=== PATIENT | female | born 1940 | race Caucasian/White ===

== ENCOUNTER 2018-11-27 15:24 | Observation (INO) | payer OTHER, BC ==
[2018-11-27 17:06] LABS: Absolute Lymphocytes (CBC) 1.7 K/uL (0.7-4.9); Absolute Monocytes 0.6 K/uL (0.1-1.3); Absolute Neutrophil 2.7 K/uL (1.8-8.0); Basophils % 1.1 % (0-1.3); Eosinophils % 3.1 % (0-4.4); Hematocrit 35.5 % (36.0-45.0); Lymphocytes % 32.2 % (15.3-44.8); MPV 7.5 fL (7.6-11.3); Monocytes % 11.5 % (3.3-12.3); RBC Red Blood Cell Count 3.93 M/uL (3.86-4.86)
[2018-11-27 17:30] VITALS: BMI 18.1
[2018-11-27 17:34] LABS: ALT/SGPT 20 U/L (12-78); AST/SGOT 22 U/L (15-37); Albumin 4.4 g/dL (3.4-5.0); Alkaline Phosphatase 77 U/L (45-117); BUN Blood Urea Nitrogen 15 mg/dL (7-18); Bicarbonate 27 mmol/L (21-32); Bilirubin Total 0.4 mg/dL (0.2-1.0); CKMB Creatine Kinase MB < 1.0 ng/mL (0.3-3.6); Creatine Phosphokinase 91 U/L (26-192); Glucose Level 90 mg/dL (74-106); Magnesium 2.4 mg/dL (1.8-2.4); Potassium 4.4 mmol/L (3.5-5.1); Protein, Total 8.2 g/dL (6.4-8.2); Sodium Level 140 mmol/L (136-145); Troponin I 0.02 ng/mL (0.0-0.045)
[2018-11-27 18:09] VITALS: BP 185/79; TEMP 98.4
[2018-11-27 18:59] LABS: Urine Appearance CLEAR; Urine Bilirubin NEGATIVE (NEG); Urine Blood NEGATIVE (NEG); Urine Color YELLOW; Urine Glucose NEGATIVE (NEG); Urine Protein NEGATIVE (NEG); Urine Urobilinogen 0.2 mg/dL (0.2-1.0); Urine pH 5.5 (5.0-7.0)
[2018-11-27 19:08] LABS: Urine Microscopic Reflex ORDER UMIC
[2018-11-27 19:17] LABS: Urine RBC NONE SEEN /HPF (NONE SEEN)
[2018-11-27 19:18] LABS: Urine Bacteria <20 /HPF (<20); Urine Culture Reflex Order NOT NEEDED
--- NOTE | 2018-11-28 06:23 | SS ---
Date of Discharge: 11/27/2018 Chief Complaint: Chest pain. History Of Present Illness: This is an 78-year-old female patient who came in with her today with complaints of right anterior knee pain and tenderness ever since she bumped her right knee a mo nth ago. For last 6 weeks, she has been having chest pain on the left side of the chest, describing this feeling as achy type of feeling in the left side of the chest and sometimes associated with left arm pain. Pain in the chest last for few minutes. She notices this pain while she does her normal housework, and sometimes she has to stop doing this work, has to sit down, and then after sitting val n for a while the pain goes away. Pain happens on a daily basis. She is also having some sinus sebastián estion and drainage. No fever. No chills. After she was evaluated at the office, I was concerned a bout this chest pain problem and discussed with her and her and recommended for her to be adm itted to the hospital for further evaluation and management of this chest pain problem, and the patie nt was agreeable to do so. 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 Medications: List reviewed. Review of Systems: Cardiovascular: As mentioned above. Musculoskeletal: As mentioned above. ENT: As mentioned above. All other systems reviewed and negative. Past Medical History: Significant for: 1.Hypertension. 2.Chronic kidney disease stage 3. 3.Osteoarthritis at multiple sites. 4.Hyperlipidemia. 5.Leukocytopenia. Past Surgical History: In 2005, she had carotid artery angioplasty and stent placement in the left c arotid artery, and in the past, she had hysterectomy and right knee surgery. Allergies: ALLERGY TO SULFA. Family History: Significant for coronary artery disease, lung cancer, osteoarthritis. Social History: Negative for smoking and alcohol use. Physical Examination: Vital Signs: When she came into office today, height was 5 feet 4 inches, weight 110 pounds, blood p ressure 187/77, pulse 56, respiratory rate 15, temperature 98.4. General: Awake, alert, oriented, not in distress. HEENT: Head atraumatic, normocephalic. Conjunctivae nonerythematous. Sclerae white. Mouth, no thr ush or edema noted. Ears/Nose, no mass, lesion, discharge noted. Neck: Supple. No JVD, lymph nodes, bruit, thyromegaly noted. Lungs: Bilateral good equal air entry. Clear to auscultation. No rhonchi. No rales. Heart: Normal heart sounds, no murmur or gallop. Abdomen: Soft, bowel sounds normal. No guarding, rigidity, tenderness, mass, hepatosplenomegaly, dis tention, or bruit noted. Extremities: No leg edema. No calf tenderness. Skin: No rash, ulcer, cellulitis. Lymphatics: No lymph node enlargement in neck, supraclavicular, infraclavicular region. Neuro: No focal neurological deficit. Chest: Unremarkable. External Genitalia: Deferred. Rectal: Deferred. Laboratory Data: White count 5.2, hemoglobin 11.7, platelets 290. Sodium 140, potassium 4.4, chlori de 108, bicarb 27, BUN 15, creatinine 1.26, glucose 90. Liver function tests unremarkable. TSH 2.19 . Urinalysis: Trace esterase, otherwise negative. Chest x-ray: EKG and echocardiogram were ordere d to be done today, result not available. Hospital Course: After I saw the patient, it was recommended for her to be admitted to the hospital for further cardiac workup, and our plan was to get EKG, echos, chest x-ray today, and stress test to patricia after getting serial cardiac enzymes. The patient's first troponin is 0.02, and her blood wor k was done just before 5 p.m., and around 7 p.m., nurse contacted and informed me that the patient jeong s decided to leave hospital against medical advice, as all of a sudden she informed nurse that she ne eds to go home to take care of her cat, and she is not going to stay in the hospital, so she signed p apers of against medical advice, and she will be leaving to home this evening. Final Diagnoses: 1.Chest pain. 2.Hypertension. 3.Mixed hyperlipidemia. 4.Osteoarthritis, multiple sites. 5.Chronic kidney disease stage 3. FRANCINE/MODL Voice ID: [id number] Report ID: [id number]
--- NOTE | 2018-11-28 12:27 | EKG ---
Test Date: 2018-11-27 Test Time: 16:56:45 Hospital Corpsman: FATMATA MEASUREMENT RESULTS: Intervals: Rate: 56 MS: 152 QRSD: 66 QT: 424 QTc: 409 [place]: P: 77 MS: 152 QRS: 81 T: 80 INTERPRETIVE STATEMENTS: Sinus bradycardia Right atrial enlargement Borderline ECG Compared to ECG 02/04/2017 05:33:51 Atrial abnormality now present Electronically Signed On 11-28-18 12:25:44 MANUFACTURING EXECUTIVE by Simone Martines
== END 2018-11-27 19:34 | disposition left against medical advice (07) ==
LOC: 2ND 15:54
PROVIDERS: ADMIT Internal Medicine; ATTEND Internal Medicine
DX: R07.9 Chest pain, unspecified (principal); I12.9 Hypertensive chronic kidney disease with stage 1 through stage 4 chronic kidney disease, or unspecified chronic kidney disease; N18.3 Chronic kidney disease, stage 3 (moderate); E78.2 Mixed hyperlipidemia; M19.90 Unspecified osteoarthritis, unspecified site
CPT/HCPCS: 36415; 80053; 82550; 82553; 83735; 84443; 84484; 85025; 93005; G0378; G0379; 81003; 81015

== ENCOUNTER 2019-12-15 09:43 | Emergency (ER) | payer OTHER, BC ==
[2019-12-15] MEDS ORDERED: TETANUS & DIPHTHERIA TOX,ADULT 0.5 ML VIAL ONE (10:36)
[2019-12-15] MEDS ORDERED: LIDOCAINE 1% MPF 30 ML VIAL ONE (10:36)
--- NOTE | 2019-12-15 11:29 | RAD REPORT ---
EXAM DESCRIPTION: RAD - Hand Right 3 View - 12/15/2019 10:47 am CLINICAL HISTORY: fall Fall, hand pain COMPARISON: No comparisons FINDINGS: Prominent osteoarthritic changes are present involving the DIP joint of the second finger. Subtle lucency is seen along the base of the fifth metacarpal in a transverse fashion. This may repr esent a fracture if the patient is tender in this region.
--- NOTE | 2019-12-15 12:07 | RAD REPORT ---
EXAM DESCRIPTION: RAD - Knee Right 3 View - 12/15/2019 10:48 am CLINICAL HISTORY: fall Trauma, fall COMPARISON: No comparisons FINDINGS: The inferior pole of the patella appears to have been previously resected. Moderate soft t issue swelling is seen along the inferior aspect of the remaining patella fragment. No acute fracture or joint effusion.
--- NOTE | 2019-12-15 12:39 | ER ---
Nurse's Notes [facility] Name: Sofia Mendieta Age: 79 yrs Sex: Female : 1940 Arrival Date: 12/15/2019 Time: 09:46 Bed 14 [facility] MD: Aryan Pablo Diagnosis: Finger Laceration;Internal Derangement of Knee Presentation: 12/15 10:06 Presenting complaint: Patient states: She stumbled and fell while going to the bathroom aj1 and cut her hand on the door frame. Denies LOC. Laceration noted to left hand, not currently bleeding. Transition of care: patient was not received from another setting of care. Onset of symptoms was December 15, 2019. Risk Assessment: Do you want to hurt yourself or someone else? Patient reports no desire to harm self or others. Initial Sepsis Screen: Does the patient meet any 2 criteria? HR > 90 bpm. No. Patient's initial sepsis screen is negative. Does the patient have a suspected source of infection? No. Patient's initial sepsis screen is negative. Care prior to arrival: None. 10:06 Method Of Arrival: Ambulatory aj1 10:06 Acuity: RODGER 4 aj1 Triage Assessment: 10:11 General: Appears in no apparent distress. comfortable, Behavior is calm, cooperative, aj1 appropriate for age. Pain: Complains of pain in left hand. Historical: - Allergies: 10:11 Sulfa (Sulfonamide Antibiotics); aj1 - Home Meds: 10:11 [place] 7.5-325 mg oral tab 1 tab three times daily [Active]; amlodipine 5 mg oral tab 1 aj1 tab once daily [Active]; Diazepam 0.5 mg Oral at bedtime [Active]; melatonin 10 mg Oral cap nightly [Active]; memantine 5 mg oral tab 2 times per day [Active]; donepezil 10 mg Oral tab 1 tab at bedtime [Active]; - PMHx: 10:11 Hypertension; kidney disease; Arthritis; aj1 - Immunization history:: Flu vaccine is not up to date. - Coronavirus screen:: The patient has NOT traveled to [place], [place], or [place] in the past 14 days. - Social history:: Smoking status: Patient/guardian denies using tobacco. - Ebola Screening: : Patient denies travel to an Ebola-affected area in the 21 days before illness onset. Screenin:12 Abuse screen: Denies threats or abuse. Denies injuries from another. Nutritional aj1 screening: No deficits noted. Tuberculosis screening: No symptoms or risk factors identified. 12:58 Fall Risk None identified. aj1 Assessment: 10:12 General: Appears in no apparent distress. comfortable, Behavior is calm, cooperative, aj1 appropriate for age. Pain: Complains of pain in left hand. Neuro: Level of Consciousness is awake, alert, obeys commands, Oriented to person, place, time, situation. Cardiovascular: Patient's skin is warm and dry. Respiratory: Airway is patent Respiratory effort is even, unlabored, Respiratory pattern is regular, symmetrical. GI: No signs and/or symptoms were reported involving the gastrointestinal system. : No signs and/or symptoms were reported regarding the genitourinary system. EENT: No signs and/or symptoms were reported regarding the EENT system. Derm: Skin is pink, warm \T\ dry. normal. Musculoskeletal: No signs and/or symptoms reported regarding the musculoskeletal system. Circulation, motion, and sensation intact. Injury Description: Laceration sustained to inner aspect of left palm is 0.5 to 2.5 cm long, no active bleeding noted at this time. 11:17 Reassessment: Patient appears in no apparent distress at this time. No changes from aj1 previously documented assessment. Patient and/or family updated on plan of care and expected duration. Pain level reassessed. Patient is alert, oriented x 3, equal unlabored respirations, skin warm/dry/pink. 12:33 Reassessment: HERI White at bedside to update patient. aj1 Vital Signs: 10:11 BP 138 / 59; Pulse 95; Resp 18; Temp 97.8; Pulse Ox 100% on R/A; Weight 59.87 kg (R); aj1 Height 5 ft. 5 in. (165.10 cm); 11:29 BP 135 / 66; Pulse 88; Resp 18; Pulse Ox 97% on R/A; aj1 12:35 BP 134 / 65; Pulse 89; Resp 18; Pulse Ox 97% on R/A; aj1 10:11 Body Mass Index 21.97 (59.87 kg, 165.10 cm) aj1 ED Course: 09:46 Patient arrived in ED. mr 09:46 Aryan Pablo MD is Private Physician. mr 10:05 Yeimy Russell, BUZZ is Primary Nurse. aj1 10:06 Carlton Loredo PA is PHCP. jm 10:06 Chapito Al MD is Attending Physician. jm 10:07 Triage completed. aj1 10:11 Arm band placed on Patient placed in an exam room. aj1 10:12 Patient has correct armband on for positive identification. Bed in low position. Call aj1 light in reach. Side rails up X 1. 10:12 No provider procedures requiring assistance completed. aj1 10:48 Hand Right 3 View XRAY In Process Unspecified. EDMS 10:48 Knee Right 3 View XRAY In Process Unspecified. EDMS 12:37 Aryan Pablo MD is Referral Physician. [facility] 12:57 Patient did not have IV access during this emergency room visit. aj1 Administered Medications: 10:38 Drug: Tetanus-Diphtheria Toxoid Adult 0.5 ml {Escalator Service Mechanic: [employer]. Exp: aj1 11/29/2021. Lot #: [id number]. } Route: IM; Site: right deltoid; 12:56 Follow up: Response: No adverse reaction aj1 11:05 Drug: Lidocaine (1 %) 20 ml {Note: Administered by HERI White.} Volume: 20 ml; aj1 Route: Infiltration; 12:56 Follow up: Response: No adverse reaction aj1 Outcome: 12:38 Discharge ordered by MD. [facility] 12:58 Discharged to home ambulatory. aj1 12:58 Condition: good 12:58 Discharge instructions given to patient, family, Instructed on discharge instructions, follow up and referral plans. medication usage, wound care, Demonstrated understanding of instructions, follow-up care, medications, wound care, Prescriptions given X 1. 13:02 Patient left the ED. aj1 Signatures: Dispatcher [employer] EDMS Yeimy Russell RN RN Carlton Mosqueda PA PA jmm HowardAyla mr Corrections: (The following items were deleted from the chart) 11:48 11:17 Reassessment: Patient appears in no apparent distress at this time. No changes aj1 from previously documented assessment. Patient and/or family updated on plan of care and expected duration. Pain level reassessed. Patient is alert/active/playful, equal unlabored respirations, skin warm/dry/pink. aj1
--- NOTE | 2019-12-15 12:40 | EDPHYS ---
Physician Documentation [facility] Name: Sofia Mendieta Age: 79 yrs Sex: Female : 1940 Arrival Date: 12/15/2019 Time: 09:46 Bed 14 Private MD: Aryan Pablo ED Physician Chapito Al HPI: 12/15 10:19 This 79 yrs old Female presents to ER via Ambulatory with complaints of Fall jmm Injury, Laceration To Hand. 10:19 Details of fall: The patient fell from an upright position, while walking. Onset: The jmm symptoms/episode began/occurred acutely, 7 hour(s) ago. Associated injuries: The patient sustained right hand, right knee. This is an 79 year old female with a history of htn, that presents to the ED with complaints of right knee pain and right hand pain after tripping at 0300 today. Denies head injury. . Historical: - Allergies: 10:11 Sulfa (Sulfonamide Antibiotics); aj1 - Home Meds: 10:11 [place] 7.5-325 mg oral tab 1 tab three times daily [Active]; amlodipine 5 mg oral tab 1 aj1 tab once daily [Active]; Diazepam 0.5 mg Oral at bedtime [Active]; melatonin 10 mg Oral cap nightly [Active]; memantine 5 mg oral tab 2 times per day [Active]; donepezil 10 mg Oral tab 1 tab at bedtime [Active]; - PMHx: 10:11 Hypertension; kidney disease; Arthritis; aj1 - Immunization history:: Flu vaccine is not up to date. - Coronavirus screen:: The patient has NOT traveled to [place], [place], or [place] in the past 14 days. - Social history:: Smoking status: Patient/guardian denies using tobacco. - Ebola Screening: : Patient denies travel to an Ebola-affected area in the 21 days before illness onset. ROS: 10:19 Constitutional: Negative for fever, chills, and weight loss, Cardiovascular: Negative jmm for chest pain, palpitations, and edema, Respiratory: Negative for shortness of breath, cough, wheezing, and pleuritic chest pain. 10:19 MS/extremity: Positive for injury or acute deformity, laceration, pain. 10:19 Skin: Positive for laceration(s). 10:19 All other systems are negative. Exam: 10:19 Constitutional: This is a well developed, well nourished patient who is awake, alert, jmm and in no acute distress. Head/Face: atraumatic. Eyes: EOMI, no conjunctival erythema appreciated ENT: Moist Mucus Membranes Neck: Trachea midline, Supple Chest/axilla: Normal chest wall appearance and motion. Cardiovascular: Regular rate and rhythm. No edema appreciated Respiratory: Normal respirations, no respiratory distress appreciated Abdomen/GI: Non distended, soft Back: Normal ROM 10:19 Musculoskeletal/extremity: right anterior knee pain on palpation, right medial knee pain on palpation, compartments are soft, full dorsalis pulse, NVI. 10:19 Skin: 3 cm laceration noted to the base of the right 5th phalanx, no active bleeding. 10:19 Neuro: Orientation: is normal, Mentation: is normal, Memory: is normal. 10:19 Psych: Behavior/mood is pleasant, cooperative. Vital Signs: 10:11 BP 138 / 59; Pulse 95; Resp 18; Temp 97.8; Pulse Ox 100% on R/A; Weight 59.87 kg (R); aj1 Height 5 ft. 5 in. (165.10 cm); 11:29 BP 135 / 66; Pulse 88; Resp 18; Pulse Ox 97% on R/A; aj1 12:35 BP 134 / 65; Pulse 89; Resp 18; Pulse Ox 97% on R/A; aj1 10:11 Body Mass Index 21.97 (59.87 kg, 165.10 cm) aj1 Laceration: 11:17 Wound Repair of 3cm ( 1.2in ) subcutaneous laceration to Palmar aspect of proximal jmm phalanx of right little finger. Distal neuro/vascular/tendon intact. Anesthesia: Local anesthetic administered with 3 mls of 1% lidocaine. Wound prep: Simple cleansing with betadine by me. Skin closed with 7 5-0 Prolene using simple sutures and sterile technique. Patient tolerated well. MDM: 10:07 Patient medically screened. m 12:36 Data reviewed: vital signs, nurses notes. Counseling: I had a detailed discussion with casimiro the patient and/or guardian regarding: the historical points, exam findings, and any diagnostic results supporting the discharge/admit diagnosis, lab results, radiology results, the need for outpatient follow up, to return to the emergency department if symptoms worsen or persist or if there are any questions or concerns that arise at home. ED course: Xrays negative. Patient is given wound infection return precautions. patient is otherwise advised to follow up with pcp for reevaluation. Patient/family understood and agrees with the plan of care. . 12/15 10:18 Order name: Hand Right 3 View XRAY; Complete Time: 11:54 jmm 12/15 10:18 Order name: Knee Right 3 View XRAY; Complete Time: 12:18 jmm 12/15 12:18 Order name: Christopher wrap-joint; Complete Time: 12:56 jm Administered Medications: 10:38 Drug: Tetanus-Diphtheria Toxoid Adult 0.5 ml {Accounts Payable Supervisor: [employer]. Exp: aj1 11/29/2021. Lot #: [id number]. } Route: IM; Site: right deltoid; 12:56 Follow up: Response: No adverse reaction aj 11:05 Drug: Lidocaine (1 %) 20 ml {Note: Administered by PA. Christopher} Volume: 20 ml; aj Route: Infiltration; 12:56 Follow up: Response: No adverse reaction aj Disposition: 12/15/19 12:38 Discharged to Home. Impression: Finger Laceration, Internal Derangement of Knee. - Condition is Stable. - Discharge Instructions: Laceration Care, Adult, Knee Pain. - Prescriptions for Cephalexin 500 mg Oral Capsule - take 1 capsule by ORAL route every 6 hours for 10 days; 40 capsule. - Medication Reconciliation Form, Thank You Letter, Antibiotic Education, Prescription Opioid Use form. - Follow up: Aryan Pablo MD; When: 5 - 6 days; Reason: Recheck today's complaints, Continuance of care, Staple/Suture removal, Re-evaluation by your physician. Addendum: 12/17/2019 07:06 Co-signature as Attending Physician, Chapito Al MD I agree with the assessment and c jeong plan of care. Signatures: Dispatcher [employer] EDMS Yeimy Russell, RN RN aj1 Chapito Al MD MD cha Mickail, Joel, PA PA jmm Corrections: (The following items were deleted from the chart) 12/15 11:17 10:19 Skin: 3 cm laceration noted to the base of the right 2nd phalanx, no active [facility] bleeding. casimiro 13:02 12:38 12/15/2019 12:38 Discharged to Home. Impression: Finger Laceration; Internal aj1 Derangement of Knee. Condition is Stable. Forms are Medication Reconciliation Form, Thank You Letter, Antibiotic Education, Prescription Opioid Use. Follow up: Aryan Pablo; When: 5 - 6 days; Reason: Recheck today's complaints, Continuance of care, Staple/Suture removal, Re-evaluation by your physician. casimiro
[2019-12-15 13:17] VITALS: TEMP 97.8
[2019-12-15 13:19] VITALS: O2SAT 97
[2019-12-15 13:21] VITALS: BP 134/65
== END 2019-12-15 13:02 | disposition home or self-care (01) ==
LOC: ER 09:43
PROC: 0JQJ0ZZ Repair Right Hand Subcutaneous Tissue and Fascia, Open Approach (ICD-10-PCS; principal; 2019-12-15)
DX: S61.216A Laceration without foreign body of right little finger without damage to nail, initial encounter (principal); M23.91 Unspecified internal derangement of right knee; I12.9 Hypertensive chronic kidney disease with stage 1 through stage 4 chronic kidney disease, or unspecified chronic kidney disease; N18.9 Chronic kidney disease, unspecified; W01.0XXA Fall on same level from slipping, tripping and stumbling without subsequent striking against object, initial encounter; Y93.9 Activity, unspecified; Y92.9 Unspecified place or not applicable; Z23 Encounter for immunization; Z88.2 Allergy status to sulfonamides
CPT/HCPCS: 90471; 90714; 99283

== ENCOUNTER 2021-03-22 22:54 | Emergency (ER) | payer OTHER, BC ==
--- NOTE | 2021-03-23 02:06 | EDPHYS ---
Physician Documentation [facility] Name: Sofia Mendieta Age: 80 yrs Sex: Female : 1940 Arrival Date: 03/22/2021 Time: 23:08 Bed 8 Private MD: ED Physician oTni Petty HPI: 03/23 01:50 This 80 yrs old Female presents to ER via EMS with unknown complaint. tw4 01:50 Details of fall: The patient fell from an upright position, while standing. Onset: The tw4 symptoms/episode began/occurred today. Associated injuries: The patient sustained injury to the head. The patient has not experienced similar symptoms in the past. Historical: - Allergies: 01:05 Sulfa (Sulfonamide Antibiotics); wh - PMHx: 01:05 Arthritis; Hypertension; kidney disease; wh - Immunization history:: Adult Immunizations unknown. - Social history:: Smoking status: unknown. ROS: 01:50 Constitutional: Negative for fever, chills, and weight loss, Eyes: Negative for injury, tw4 pain, redness, and discharge, Cardiovascular: Negative for chest pain, palpitations, and edema, Respiratory: Negative for shortness of breath, cough, wheezing, and pleuritic chest pain, Abdomen/GI: Negative for abdominal pain, nausea, vomiting, diarrhea, and constipation, Back: Negative for injury and pain, MS/Extremity: Negative for injury and deformity, Skin: Negative for injury, rash, and discoloration, Neuro: Negative for headache, weakness, numbness, tingling, and seizure. Exam: 01:50 Constitutional: This is a well developed, well nourished patient who is awake, alert, tw4 and in no acute distress. Head/Face: Normocephalic, atraumatic. Chest/axilla: Normal chest wall appearance and motion. Nontender with no deformity. No lesions are appreciated. Cardiovascular: Regular rate and rhythm with a normal S1 and S2. No gallops, murmurs, or rubs. Normal PMI, no JVD. No pulse deficits. Respiratory: Lungs have equal breath sounds bilaterally, clear to auscultation and percussion. No rales, rhonchi or wheezes noted. No increased work of breathing, no retractions or nasal flaring. Abdomen/GI: Soft, non-tender, with normal bowel sounds. No distension or tympany. No guarding or rebound. No evidence of tenderness throughout. Back: No spinal tenderness. No costovertebral tenderness. Full range of motion. MS/ Extremity: Pulses equal, no cyanosis. Neurovascular intact. Full, normal range of motion. Neuro: Awake and alert, GCS 15, oriented to person, place, time, and situation. Cranial nerves II-XII grossly intact. Motor strength 5/5 in all extremities. Sensory grossly intact. Cerebellar exam normal. Normal gait. Vital Signs: 03/22 23:10 BP 153 / 64; Pulse 62; Resp 18; Pulse Ox 100% on R/A; 03/23 02:00 BP 148 / 64; Pulse 55; Resp 18; Pulse Ox 99% on R/A; MDM: 03/22 23:20 Patient medically screened. tw4 03/23 01:50 Differential diagnosis: abrasion, closed head injury, contusion. Data reviewed: vital tw4 signs, nurses notes. Data interpreted: Pulse oximetry: Interpretation: normal. Counseling: I had a detailed discussion with the patient and/or guardian regarding: the historical points, exam findings, and any diagnostic results supporting the discharge/admit diagnosis. 03/22 23:33 Order name: Head C Spine Cap Wo Con CT Administered Medications: No medications were administered Disposition: 03/23/21 02:05 Discharged to Home. Impression: Contusion of other part of head. - Condition is Stable. - Discharge Instructions: Contusion, Head Injury, Adult, [id number]. - Medication Reconciliation Form, Thank You Letter, Antibiotic Education, Prescription Opioid Use form. - Follow up: Private Physician; When: Upon discharge from the Emergency Department; Reason: Recheck today's complaints, Continuance of care, Re-evaluation by your physician. - Problem is new. - Symptoms have improved. Signatures: Dispatcher [employer] EDKing Herron RN RN Toni Petty MD MD tw4 Corrections: (The following items were deleted from the chart) 02:23 02:05 03/23/2021 02:05 Discharged to Home. Impression: Contusion of other part of head. Condition is Stable. Forms are Medication Reconciliation Form, Thank You Letter, Antibiotic Education, Prescription Opioid Use. Follow up: Private Physician; When: Upon discharge from the Emergency Department; Reason: Recheck today's complaints, Continuance of care, Re-evaluation by your physician. Problem is new. Symptoms have improved. tw4
--- NOTE | 2021-03-23 02:06 | ER ---
Nurse's Notes [facility] Name: Sofia Mendieta Age: 80 yrs Sex: Female : 1940 Arrival Date: 03/22/2021 Time: 23:08 Bed 8 Private MD: Diagnosis: Contusion of other part of head Presentation: 03/22 23:10 Chief complaint: EMS states: of Pt heard a thud and [facility] staff was wh called, Pt was found sitting on floor. EMS states unwitnessed fall, unknown LOC, but Pt with no complaint of paiin. Coronavirus screen: Client denies travel out of the [place] in the last 14 days. Client indicates they have traveled out of the [place] in the last 14 days. Ebola Screen: Patient negative for fever greater than or equal to 101.5 degrees Fahrenheit, and additional compatible Ebola Virus Disease symptoms Patient denies exposure to infectious person. Initial Sepsis Screen: Does the patient meet any 2 criteria? No. Patient's initial sepsis screen is negative. Does the patient have a suspected source of infection? No. Patient's initial sepsis screen is negative. Risk Assessment: Do you want to hurt yourself or someone else? Patient reports no desire to harm self or others. Onset of symptoms was March 22, 2021. 23:10 Method Of Arrival: EMS: [facility] 23:10 Acuity: RODGER 4 Historical: - Allergies: 03/23 01:05 Sulfa (Sulfonamide Antibiotics); - PMHx: 01:05 Arthritis; Hypertension; kidney disease; - Immunization history:: Adult Immunizations unknown. - Social history:: Smoking status: unknown. Screenin:00 Abuse screen: Denies threats or abuse. Denies injuries from another. Nutritional screening: No deficits noted. Tuberculosis screening: No symptoms or risk factors identified. Fall Risk Fall in past 12 months (25 points). Assessment: 00:00 General: Appears in no apparent distress. Behavior is cooperative. Pain: Denies pain. Neuro: Level of Consciousness is awake, alert, obeys commands, Oriented to person, place, time. Cardiovascular: Capillary refill < 3 seconds. Respiratory: Airway is patent Respiratory effort is even, unlabored, Respiratory pattern is regular, symmetrical. GI: Abdomen is flat, non-distended. : No signs and/or symptoms were reported regarding the genitourinary system. EENT: No signs and/or symptoms were reported regarding the EENT system. Derm: Skin is intact. Musculoskeletal: Circulation, motion, and sensation intact. 01:07 Reassessment: Patient appears in no apparent distress at this time. No changes from previously documented assessment. Patient and/or family updated on plan of care and expected duration. Pain level reassessed. 02:15 Reassessment: Patient appears in no apparent distress at this time. No changes from previously documented assessment. Patient and/or family updated on plan of care and expected duration. Pain level reassessed. Vital Signs: 03/22 23:10 BP 153 / 64; Pulse 62; Resp 18; Pulse Ox 100% on R/A; 03/23 02:00 BP 148 / 64; Pulse 55; Resp 18; Pulse Ox 99% on R/A; ED Course: 03/22 23:08 Patient arrived in ED. mw2 23:09 Toni Petty MD is Attending Physician. tw4 23:32 King Miner, RN is Primary Nurse. 03/23 00:00 Patient has correct armband on for positive identification. Bed in low position. Call light in reach. Side rails up X 1. Pulse ox on. NIBP on. 00:00 Arm band placed on right wrist. 00:50 Head C Spine Cap Wo Con CT In Process Unspecified. EDFL 01:05 Triage completed. 02:22 No provider procedures requiring assistance completed. Patient did not have IV access during this emergency room visit. Administered Medications: No medications were administered Outcome: 02:05 Discharge ordered by . tw4 02:22 Discharged to [facility]. Transfer form completed. Report given to [facility] 02:22 Condition: stable 02:22 Discharge instructions given to patient, Instructed on discharge instructions, follow up and referral plans. POC Demonstrated understanding of instructions, follow-up care, POC 02:23 Patient left the ED. Signatures: Dispatcher [employer] EDMS King Miner, RN RN Toni Petty MD MD 4 Rachael Matias mw2
[2021-03-23 02:31] VITALS: BP 148/64; O2SAT 99
--- NOTE | 2021-03-23 11:22 | RAD REPORT ---
EXAM DESCRIPTION: CT - Head C Spine Cap Wo Con - 03/23/2021 12:50 am CLINICAL HISTORY: The patient is 80 years old and is Female; fall TECHNIQUE: Axial computed tomography images of the head/brain and cervical spine without intravenous contrast. Sagittal and coronal reformatted images were created and reviewed. This CT exam was pe rformed using one or more of the following dose reduction techniques: automated exposure control, a djustment of the mA and/or kV according to patient size, and/or use of iterative reconstruction techn ique. COMPARISON: CT cervical spine 03/03/2015. FINDINGS: Brain: [id number]-[id number] cerebral atrophy. Mild nonspecific white matter changes likely related to chronic microvascular ischemic disea se. No hemorrhage. Ventricles: Unremarkable. No ventriculomegaly. Skull: No acute fracture. Sinuses: Unremarkable as visualized. No acute sinusitis. Mastoid air cells: Unremarkable as visualized. No mastoid effusion. Vertebrae: No acute cervical spine fracture. Minimal anterolisthesis of C3 on C4. 3 mm of anterolisthesis of C4 on C5 which is new compared to the prior exam. Discs/spinal canal/neural foramina: Multilevel disc space narrowing with degenerative endplate c hanges most prominent at C4-C5 and C5-C6. Multilevel facet and uncovertebral joint hypertrophy. Soft tissues: Unremarkable. Vasculature: Stent in the left common carotid artery. Thyroid: 4 mm low-density nodule in the right thyroid. * A single impression for all exams can be found at the end of this report EXAM DESCRIPTION: CT Chest, Abdomen and Pelvis Without Intravenous Contrast CLINICAL HISTORY: The patient is 80 years old and is Female; fall TECHNIQUE: Axial computed tomography images of the chest, abdomen and pelvis without intravenous con trast. Sagittal and coronal reformatted images were created and reviewed. This CT exam was perfor med using one or more of the following dose reduction techniques: automated exposure control, adjus tment of the mA and/or kV according to patient size, and/or use of iterative reconstruction technique . COMPARISON: No relevant prior studies available. FINDINGS: CHEST: Lungs: Unremarkable. No mass. No consolidation. Pleural space: Unremarkable. No significant effusion. No pneumothorax. Heart: Unremarkable. No cardiomegaly. No significant pericardial effusion. ABDOMEN: Liver: 1.3 cm cyst in the left liver. Gallbladder and bile ducts: Unremarkable. No calcified stones. No ductal dilation. Pancreas: Unremarkable. No ductal dilation. Spleen: Unremarkable. No splenomegaly. Adrenals: Unremarkable. No mass. Kidneys and ureters: Unremarkable. No obstructing stones. No hydronephrosis. Stomach and bowel: Scattered colonic diverticula without evidence of diverticulitis. No obstruction. PELVIS: Appendix: No findings to suggest acute appendicitis. Bladder: Unremarkable. No stones. Reproductive: Unremarkable as visualized. CHEST, ABDOMEN and PELVIS: Intraperitoneal space: Unremarkable. No significant fluid collection. No free air. Bones/joints: 9 mm of anterolisthesis of L5 on S1 with bilateral pars defects. Multilevel disc space narrowing with degenerative endplate changes most prominent at L2-3 an d L4-5. No acute fracture. No dislocation. Soft tissues: Unremarkable. Vasculature: Tortuous aorta. Stent in the left common carotid artery. Scattered atherosclerotic vascular calcifications. No aortic aneurysm. Lymph nodes: Unremarkable. No enlarged lymph nodes. * A single impression for all exams can be found at the end of this report IMPRESSION: CT Head and Cervical Spine Without Intravenous Contrast: 1. No acute intracranial abnormality. 2. No acute cervical spine fracture. CT Chest, Abdomen and Pelvis Without Intravenous Contrast: No acute findings in the chest, abdomen or pelvis. Electronically signed by: Mk Marin MD 03/23/2021 1:45 AM CDT Due to temporary technical issues with the PACS/Fluency reporting system, reports are being signed by the in house radiologist without review as a courtesy to ensure prompt reporting. The interpreting r adiologist is fully responsible for the content of the report.
== END 2021-03-23 02:23 | disposition home or self-care (01) ==
LOC: ER 22:54
DX: S00.83XA Contusion of other part of head, initial encounter (principal); W19.XXXA Unspecified fall, initial encounter; Z88.2 Allergy status to sulfonamides
CPT/HCPCS: 70450; 71250; 72125; 99283

== ENCOUNTER 2021-04-16 06:26 | Observation (INO) | payer OTHER, BC ==
--- NOTE | 2021-04-16 07:34 | RAD REPORT ---
EXAM DESCRIPTION: CT - Head C Spine Mpr Wo Con - 04/16/2021 7:16 am CLINICAL HISTORY: Head and neck injury status post fall. Head and neck pain COMPARISON: March 22, 2021 TECHNIQUE: Computed axial tomography of the head and cervical spine was obtained. Sagittal and coronal reconstruction was performed. All CT scans are performed using dose optimization technique as appropriate and may include automated exposure control or mA/KV adjustment according to patient size. FINDINGS: An intracranial bleed is not seen. A prominent cerebral atrophy is unchanged. . An extra-a xial fluid collection is not noted.Fluid within the visualized sinuses and mastoids is not seen A cervical fracture is not visualized. No dislocation is noted. Mild to moderate anterior subluxation C4 on C5 unchanged. Spondylosis involves the cervical spine IMPRESSION: No acute intracranial abnormality is seen. A cervical fracture is not visualized. If the patient continues to have symptoms to suggest intracra nial /spinal cord pathology then MRI would be recommended
--- NOTE | 2021-04-16 07:37 | RAD REPORT ---
EXAM DESCRIPTION: CTSpine Lumbar Wo Con04/16/2021 7:16 am CLINICAL HISTORY: Back injury with back pain status post fall COMPARISON: None TECHNIQUE: Computed axial tomography lumbar spine was obtained with coronal and sagittal reconstruct ion. All CT scans are performed using dose optimization technique as appropriate and may include automated exposure control or mA/KV adjustment according to patient size. FINDINGS: No acute fracture is seen. No dislocation is noted. Spondylosis L5. Mild to moderate anterior subluxation of L5 on S1. Spondylosis involves the lumbar spine IMPRESSION: Negative for acute lumbar fracture.
--- NOTE | 2021-04-16 07:53 | RAD REPORT ---
EXAM DESCRIPTION: CT - Pelvis Wo Cont - 04/16/2021 7:16 am CLINICAL HISTORY: Pelvic pain status post fall COMPARISON: None. TECHNIQUE: Computed axial tomography of the pelvis was obtained. Coronal and sagittal reconstruction performed All CT scans are performed using dose optimization technique as appropriate and may include automated exposure control or mA/KV adjustment according to patient size. FINDINGS: Subtle cortical regularity involves lateral aspect of the junction of left femoral head. Muscles are normal size and density. A subcutaneous contusion is not noted The bones are osteoporotic IMPRESSION: The bones are osteoporotic Subtle cortical regularity involves lateral aspect of the junction of left femoral head and neck. Mos t likely this is not significant. A minimal nondisplaced subcapital fracture although possible is con sidered less likely. If the patient has significant pain in this region to suggest an occult fracture then MRI would recommended
--- NOTE | 2021-04-16 07:54 | RAD REPORT ---
EXAM DESCRIPTION: RAD - Hip Left 2 View - 04/16/2021 7:29 am CLINICAL HISTORY: Left hip pain status post injury FINDINGS: No fracture or dislocation is seen. The bones are osteoporotic. Refer to the CT report on the same for additional findings
--- NOTE | 2021-04-16 07:55 | RAD REPORT ---
EXAM DESCRIPTION: RAD - Knee Right 3 View - 04/16/2021 7:30 am CLINICAL HISTORY: Right knee pain status post injury FINDINGS: No fracture or dislocation is seen. Bones are osteoporotic
[2021-04-16] MEDS ORDERED: NA CHLORIDE 0.9% 1,000 ML ONE (08:20)
[2021-04-16 08:21] LABS: Absolute Lymphocytes (CBC) 0.3 K/uL (0.7-4.9); Hematocrit 29.8 % (36.0-45.0); Lymphocytes % 2.9 % (15.3-44.8); MPV 7.2 fL (7.6-11.3); RBC Red Blood Cell Count 3.42 M/uL (3.86-4.86)
[2021-04-16 08:32] LABS: Protime INR 0.97
[2021-04-16] MEDS ORDERED: MEMANTINE HCL 10 MG TABLET PO ONE (08:45)
[2021-04-16] MEDS ORDERED: DOCUSATE NA 100 MG CAP PO ONE (08:45)
[2021-04-16] MEDS ORDERED: AMLODIPINE 5 MG TAB ONE (08:51)
[2021-04-16] MEDS ORDERED: HYDROCODONE/APAP 7.5/325 MG TAB ONE (08:51)
--- NOTE | 2021-04-16 09:09 | EDPHYS ---
Physician Documentation [facility] Name: Sofia Mendieta Age: 80 yrs Sex: Female : 1940 Arrival Date: 04/16/2021 Time: 06:28 Bed 8 Private MD: ED Physician Donald Calixto HPI: 04/16 06:57 This 80 yrs old Female presents to ER via EMS with complaints of fall. rn 06:57 Details of fall: The patient fell from an upright position, while standing. Onset: The rn symptoms/episode began/occurred just prior to arrival. Associated injuries: The patient sustained injury to the head, injury to the low back, left hip, right knee, low back. Severity of symptoms: At their worst the symptoms were mild, in the emergency department the symptoms are unchanged. It is unknown whether or not the patient has had similar symptoms in the past. The patient has not recently seen a physician. Denies LOC, not on blood thinners. Historical: - Allergies: 06:33 Sulfa (Sulfonamide Antibiotics); ea - Home Meds: 06:33 memantine 5 mg Oral tab 2 times per day [Active]; Armagh 7.5-325 mg Oral tab 1 tab three ea times daily [Active]; melatonin 10 mg Oral cap nightly [Active]; donepezil 10 mg Oral tab 1 tab at bedtime [Active]; Diazepam 0.5 mg Oral at bedtime [Active]; amlodipine 5 mg tab 1 tab once daily [Active]; - PMHx: 06:33 kidney disease; Hypertension; Arthritis; ea - Immunization history:: Adult Immunizations up to date. - Social history:: Smoking status: unknown. - Family history:: not pertinent. - Hospitalizations: : No recent hospitalization is reported. ROS: 06:57 Constitutional: Negative for fever, chills, and weight loss, Eyes: Negative for injury, rn pain, redness, and discharge, Neck: Negative for injury, pain, and swelling, Cardiovascular: Negative for chest pain, palpitations, and edema, Respiratory: Negative for shortness of breath, cough, wheezing, and pleuritic chest pain, Abdomen/GI: Negative for abdominal pain, nausea, vomiting, diarrhea, and constipation, Back: + low back pain MS/Extremity: + left hip pain, + right knee pain Skin: Negative for injury, rash, and discoloration, Neuro: + headache Exam: 06:57 Constitutional: This is a well developed, well nourished patient who is awake, alert, rn and in no acute distress. Head/Face: Normocephalic, atraumatic. Eyes: Pupils equal round and reactive to light, extra-ocular motions intact. Periorbital areas with no swelling, redness, or edema. ENT: No oral injury Neck: In ccollar, no midline tenderness Chest/axilla: Nontender with no deformity. No lesions are appreciated. Cardiovascular: Regular rate and rhythm. No pulse deficits. Respiratory: No increased work of breathing, no retractions or nasal flaring. Abdomen/GI: soft, non-tender Back: + lumbar perispinal tenderness MS/ Extremity: Pulses equal, no cyanosis. + painful ROM left hip and right knee. No gross deformity Neuro: Awake and alert, GCS 15 Vital Signs: 06:30 BP 151 / 59; Pulse 78; Resp 18; Temp 98.8; Pulse Ox 98% ; Weight 58.97 kg; Height 5 ft. ea 6 in. (167.64 cm); 08:30 BP 125 / 54; Pulse 63; Resp 18; Pulse Ox 99% on R/A; tr6 06:30 Body Mass Index 20.98 (58.97 kg, 167.64 cm) ea MDM: 06:56 Patient medically screened. rn 09:09 Data reviewed: vital signs, nurses notes, lab test result(s), radiologic studies. kdr Counseling: I had a detailed discussion with the patient and/or guardian regarding: the historical points, exam findings, and any diagnostic results supporting the discharge/admit diagnosis, lab results, radiology results, the need for further work-up and treatment in the hospital. 04/16 06:36 Order name: CBC with Diff rn 04/16 06:36 Order name: Basic Metabolic Panel; Complete Time: 07:27 rn 04/16 06:36 Order name: Protime (+inr); Complete Time: 08:44 rn 04/16 06:36 Order name: Ptt, Activated; Complete Time: 08:44 rn 04/16 06:37 Order name: CBC with Automated Diff EDMS 04/16 10:35 Order name: Basic Metabolic Panel EDMS 04/16 06:36 Order name: CT Head C Spine; Complete Time: 07:46 rn 04/16 10:35 Order name: Basic Metabolic Panel EDMS 04/16 10:35 Order name: CBC with Automated Diff EDMS 04/16 10:35 Order name: CBC with Automated Diff EDMS 04/16 11:03 Order name: Manual Differential EDMS 04/16 11:40 Order name: COVID-19 : Document "Date of Symptom Onset" if Symptomatic. ss 04/16 12:01 Order name: CORONAVIRUS EDMS 04/16 13:13 Order name: SARS-COV-2 RT PCR EDMS 04/16 06:36 Order name: CT Lumbar Spine Wo Con; Complete Time: 07:46 rn 04/16 06:36 Order name: CT Pelvis wo Cont; Complete Time: 08:14 rn 04/16 06:36 Order name: XRAY Hip LEFT 2 view; Complete Time: 08:14 rn 04/16 06:36 Order name: XRAY Knee RIGHT 3 view; Complete Time: 08:14 rn 04/16 08:48 Order name: Hip Left Wo Cont EDMS 04/16 10:35 Order name: CONS Physician Consult EDMS 04/16 10:35 Order name: Regular EDMS 04/16 10:35 Order name: EKG Electrocardiogram EDMS 04/16 10:35 Order name: EKG Electrocardiogram EDMS 04/16 10:35 Order name: Chest Single View EDMS 04/16 10:35 Order name: Chest Single View EDMS 04/16 06:36 Order name: IV Start; Complete Time: 07:04 rn 04/16 07:10 Order name: Labs - recollect needed: recollect green and blue top; Complete Time: 08:09 bd 04/16 10:21 Order name: Misc. Order: Change IV to NS at 75cc/hr; Complete Time: 10:42 kdr 04/16 11:40 Order name: Diet Regular; Complete Time: 11:40 tr6 Administered Medications: 08:08 Drug: NS 0.9% 1000 ml Route: IV; Rate: 125 ml/hr; Site: left antecubital; tr6 08:48 Drug: Norvasc (amlodipine) 5 mg Route: PO; tr6 08:49 Drug: Armagh (HYDROcodone-acetaminophen) (7.5 mg-325 mg) 1 tabs Route: PO; tr6 Disposition: 04/16/21 09:08 Hospitalization ordered by Angie Pablo for Observation. Preliminary diagnosis are Pain in left hip, Hypo-osmolality and hyponatremia. - Bed requested for Telemetry/MedSurg (observation). - Status is Observation. tr6 - Condition is Stable. - Problem is new. - Symptoms have improved. Signatures: Dispatcher [employer] EDMS Sofia Smith Donald Greco MD MD kdr Nieto, Roman, MD MD rn Antunez, Elena, RN RN Tequila Dudley RN RN tr6 Corrections: (The following items were deleted from the chart) 09:09 09:08 Hospitalization Ordered by A Bev SOUZA for Observation. Preliminary diagnosis is kdr Pain in left hip. Bed requested for Telemetry/MedSurg (observation). Status is Observation. Condition is Stable. Problem is new. Symptoms have improved. kdr 14:01 09:09 04/16/2021 09:08 Hospitalization Ordered by A Bev SOUZA for Observation. bd Preliminary diagnosis is Pain in left hip; Hypo-osmolality and hyponatremia. Bed requested for Telemetry/MedSurg (observation). Status is Observation. Condition is Stable. Problem is new. Symptoms have improved. kdr 14:14 14:01 04/16/2021 09:08 Hospitalization Ordered by A Bev SOUZA for Observation. bd Preliminary diagnosis is Pain in left hip; Hypo-osmolality and hyponatremia. Bed requested for Telemetry/MedSurg (observation). Status is Observation. Condition is Stable. Problem is new. Symptoms have improved. bd 14:42 14:14 04/16/2021 09:08 Hospitalization Ordered by A Bev SOUZA for Observation. tr6 Preliminary diagnosis is Pain in left hip; Hypo-osmolality and hyponatremia. Bed requested for Telemetry/MedSurg (observation). Status is Observation. Condition is Stable. Problem is new. Symptoms have improved. bd
--- NOTE | 2021-04-16 09:09 | ER ---
Nurse's Notes [facility] Name: Sofia Mendieta Age: 80 yrs Sex: Female : 1940 Arrival Date: 04/16/2021 Time: 06:28 Bed 8 Private MD: Diagnosis: Pain in left hip;Hypo-osmolality and hyponatremia Presentation: 04/16 06:30 Chief complaint: EMS states: Pt sitting on side of bed, fell forward, possibly hit ea head, pt denies LOC. Coronavirus screen: At this time, the client does not indicate any symptoms associated with coronavirus-19. Ebola Screen: No symptoms or risks identified at this time. Initial Sepsis Screen: Does the patient meet any 2 criteria? No. Patient's initial sepsis screen is negative. Does the patient have a suspected source of infection? No. Patient's initial sepsis screen is negative. Risk Assessment: Do you want to hurt yourself or someone else? Patient reports no desire to harm self or others. Onset of symptoms was April 16, 2021. 06:30 Method Of Arrival: EMS: [facility] ea 06:30 Acuity: RODGER 3 ea Triage Assessment: 06:34 General: Appears uncomfortable, Behavior is appropriate for age. Pain: Complains of ea pain in back. Neuro: Level of Consciousness is awake, alert, obeys commands, Oriented to person, place, time. Historical: - Allergies: 06:33 Sulfa (Sulfonamide Antibiotics); ea - Home Meds: 06:33 memantine 5 mg Oral tab 2 times per day [Active]; [place] 7.5-325 mg Oral tab 1 tab three ea times daily [Active]; melatonin 10 mg Oral cap nightly [Active]; donepezil 10 mg Oral tab 1 tab at bedtime [Active]; Diazepam 0.5 mg Oral at bedtime [Active]; amlodipine 5 mg tab 1 tab once daily [Active]; - PMHx: 06:33 kidney disease; Hypertension; Arthritis; ea - Immunization history:: Adult Immunizations up to date. - Social history:: Smoking status: unknown. - Family history:: not pertinent. - Hospitalizations: : No recent hospitalization is reported. Screenin:32 Abuse screen: Denies threats or abuse. Nutritional screening: No deficits noted. ea Tuberculosis screening: No symptoms or risk factors identified. Fall Risk Fall in past 12 months (25 points). Assessment: 06:32 General: Appears uncomfortable, Behavior is calm, cooperative, appropriate for age. ad5 Pain: Complains of pain in headache, lower back. Neuro: Level of Consciousness is awake, alert, obeys commands, Oriented to person, place, situation, Restaurant Worker are equal bilaterally Moves all extremities. Speech is normal, Pupils are PERRLA, Intact. Cardiovascular: No deficits noted. Heart tones present Capillary refill < 3 seconds JVD is absent Patient's skin is warm and dry. Rhythm is regular. Respiratory: No deficits noted. Airway is patent Respiratory effort is even, unlabored, Respiratory pattern is regular, symmetrical. GI: No deficits noted. No signs and/or symptoms were reported involving the gastrointestinal system. Abdomen is flat, Abd is soft and non tender. : No deficits noted. No signs and/or symptoms were reported regarding the genitourinary system. EENT: No deficits noted. No signs and/or symptoms were reported regarding the EENT system. Derm: No deficits noted. No signs and/or symptoms reported regarding the dermatologic system. Skin is intact, Skin is pink, warm \T\ dry. Musculoskeletal: Reports pain in head, lower back. Injury Description: Pt reports sitting on side of bed at local NH when fell forward. Pt reports possibly hit head during fall, denies LOC. Pt with hx of dementia, AAOx3. No blood thinner use per EMS or NH paperwork. Distal SMCs intact, no obvious deformities or abnormalities. 06:32 Reassessment: Pt in c-collar and LSB by EMS captain waiter. ad5 07:00 Reassessment: MD at bedside to remove pt from LSB, tolerated well. Repositioned for ad5 comfort in stretcher. 12:31 Reassessment: Assisted patient to restroom VIA wheelchair. Pt voided x 1. ss Vital Signs: 06:30 BP 151 / 59; Pulse 78; Resp 18; Temp 98.8; Pulse Ox 98% ; Weight 58.97 kg; Height 5 ft. ea 6 in. (167.64 cm); 08:30 BP 125 / 54; Pulse 63; Resp 18; Pulse Ox 99% on R/A; tr6 06:30 Body Mass Index 20.98 (58.97 kg, 167.64 cm) ea ED Course: 06:28 Patient arrived in ED. iw 06:31 Triage completed. ea 06:32 Patient has correct armband on for positive identification. Bed in low position. Call ea light in reach. Side rails up X2. ram car operator on. Pulse ox on. NIBP on. 06:34 Arm band placed on right wrist. Patient placed in an exam room, on a stretcher, on ea sap abap programmer, on pulse oximetry. 06:55 Donald Calixto MD is Attending Physician. kdr 06:55 Inserted saline lock: 22 gauge in left forearm, using aseptic technique. ad5 06:56 Initial lab(s) drawn, by me, sent to lab. ad5 07:16 CT Head C Spine In Process Unspecified. EDMS 07:16 CT Lumbar Spine Wo Con In Process Unspecified. EDMS 07:16 CT Pelvis wo Cont In Process Unspecified. EDMS 07:24 XRAY Hip LEFT 2 view In Process Unspecified. EDMS 07:24 XRAY Knee RIGHT 3 view In Process Unspecified. EDMS 08:31 Tequila Rea, RN is Primary Nurse. tr6 09:07 Angie Pablo MD is Hospitalizing Provider. kdr Administered Medications: 08:08 Drug: NS 0.9% 1000 ml Route: IV; Rate: 125 ml/hr; Site: left antecubital; tr6 08:48 Drug: Norvasc (amlodipine) 5 mg Route: PO; tr6 08:49 Drug: [place] (HYDROcodone-acetaminophen) (7.5 mg-325 mg) 1 tabs Route: PO; tr6 Outcome: 09:08 Decision to Hospitalize by Provider. kdr 14:42 Patient left the ED. tr6 Signatures: Dispatcher [employer] EDMS Donald Calixto MD MD kdr Sakina Bishop RN RN iw Nieto, Roman, MD MD rn Smirch, Shelby, RN RN ss Antunez, Elena, RN RN ea Ramnanan, Tiffany, RN RN tr6 Addy Genao ad5 Corrections: (The following items were deleted from the chart) 06:58 06:32 General: Appears uncomfortable, Behavior is calm, cooperative, appropriate for ad5 age, ad5 07:00 06:58 Reassessment: Pt in c-collar and LSB in place by EMS captain waiter ad5 ad5
[2021-04-16] MEDS ORDERED: ACETAMINOPHEN 500 MG TAB PO PRN (10:31)
[2021-04-16] MEDS ORDERED: ONDANSETRON 4 MG/2 ML VIAL IV PRN (10:31)
[2021-04-16] MEDS: NA CHLORIDE 0.9% 1,000 ML IV SCH (11:00)
[2021-04-16 11:03] LABS: Blood Morphology Comment NOT SEEN (NOT SEEN); Platelet Estimate ADEQ
[2021-04-16 15:33] VITALS: BMI 20.9
[2021-04-16] MEDS: HYDROCODONE/APAP 7.5/325 MG TAB PO PRN (20:05)
[2021-04-16] MEDS ORDERED: ENOXAPARIN 30 MG/0.3 ML SQ ONE (22:07)
--- NOTE | 2021-04-16 22:41 | CON ---
Date of Consultation: 04/16/2021 Reason For Consultation: Left hip pain. History Of Present Illness: Sofia is an 80-year-old female, who was brought to the emergency room early this morning after complaints of a fall with subsequent pain to her back and left hip. She was seen in the emergency room and had x-rays of her pelvis, which were negative for any acute fracture, dislocation. CT scan of the pelvis demonstrated possible irregularity over the left femoral neck an d MRI of her left hip was ordered. The patient mobilizes with use of a walker for ambulation. She r eports some mild lateral left hip pain and tenderness. MRI of her left hip is pending secondary to t he MRI she has done at this time. Her daughter states that the patient is getting up to use the bath room on her own during her current hospital stay today. Review of Systems: As above, otherwise negative. Past Medical History: Kidney disease, hypertension, and arthritis. Home Medications: Includes memantine, [place], melatonin, donepezil, diazepam, amlodipine. Allergies: SULFA. Social History: Denies tobacco or alcohol use. Lives at [facility]. Physical Examination: General: No apparent distress. HEENT: Normocephalic, atraumatic. Neck: Supple. Cardiovascular: Brisk cap refill to all digits. Chest: Nonlabored breathing. Abdomen: Nondistended. Psychiatric: Responds to exam. Musculoskeletal: Bilateral upper extremities functional range of motion without pain. No gross defo rmities. No obvious dislocations. Right lower extremity functional range of motion without pain. N o gross deformities. No obvious dislocations. No significant tenderness palpation of the right knee . No pain with range of motion of the right knee. Left lower extremity with mild tenderness to palp ation over the lateral hip. No pain with flexion, internal and external rotation of left hip. No pa in with active flexion of the left hip. Pain with range of motion of the left knee. Neurovascularly intact distally. Diagnostic Studies: X-rays of the pelvis are negative for any acute fracture or dislocation. CT sca n was reviewed, which was done, negative for any significant displaced left femoral neck fracture. M RI of the left hip is pending. Assessment And Plan: Ms. Mendieta is an 80-year-old female with a left hip contusion. X-rays and CAT scans of her left hip were negative for any acute fracture or dislocation. MRI of the left hip is p ending to rule out occult fracture. Her exam is more consistent with a left hip contusion, however, we will continue to follow up with MRI of the left hip. We will hold off on any form of physical the rapy until MRI of the left hip is completed. JENN/MODL Voice ID: [id number] Report ID: [id number]
[2021-04-17] MEDS: NA CHLORIDE 0.9% 1,000 ML IV SCH ×2 (00:20→02:45)
--- NOTE | 2021-04-17 01:04 | HP ---
Date of Admission: 04/16/2021 Chief Complaint: Fall and back pain. History Of Present Illness: This is an 80-year-old very pleasant female patient, living at [facility], who was trying to get out of bed, lost her balance and fell down. Staff member at [facility] found her on the floor and she was sent to emergency room for further evaluation. The patient is complaining of pain in her lower back, but this is her chronic back pain complaint and she does not report any worsening of pain after today's fall. She denies any hip pain. Workup done in the emergency room reviewed and I was contacted requesting admission to the hospital. Her hip x-ray was negative, but CAT scan of the pelvis shows questionable cortical irregularities of the left hip and MRI will need to be done to rule out any occult hip fracture. She denies any head injury. Allergies: SULFA. Medications: [place] 7.5 mg 3 times a day, donepezil 10 mg daily at bedtime, fluticasone nasal spray 1 spray each nostril 2 times a day, Claritin 10 mg daily as needed for allergies, lorazepam 0.5 mg daily at bedtime as needed for sleep, melatonin 10 mg at bedtime, memantine 5 mg 2 times a day, Benicar 20 mg daily, Seroquel 25 mg daily at bedtime, Senokot 1 tablet 3 times a day. Review of Systems: Musculoskeletal: As mentioned above. All other systems reviewed and negative. Past Medical History: Significant for senile dementia, allergic rhinitis, hypertension, mixed hyperlipidemia, carotid artery stenosis, constipation, chronic kidney disease, osteoarthritis at multiple sites, leukocytopenia, anemia, osteoporosis. Past Surgical History: Left carotid artery stent placement in 2005, hysterectomy, right knee surgery. Family History: Father had lung cancer and coronary artery disease. Mother had arthritis. Brother with coronary artery disease. Social History: Negative for smoking or alcohol use. Physical Examination: Vital Signs: Last vital signs this evening, temperature 98.6, pulse 59, respiratory rate 18, blood pressure 99/46. Height 5 feet 6 inches, weight 130 pounds. General: Awake, alert, oriented, not in distress. HEENT: Head atraumatic, normocephalic. Conjunctivae nonerythematous. Sclerae white. Mouth, no thrush or edema noted. Ears/Nose, no mass, lesion, discharge noted. Neck: Supple. No JVD, lymph nodes, bruit, thyromegaly noted. Lungs: Bilateral good equal air entry. Clear to auscultation. No rhonchi. No rales. Heart: Normal heart sounds. No murmur or gallop. Abdomen: Soft. Bowel sounds normal. No guarding, rigidity, tenderness, mass, hepatosplenomegaly, distention, or bruit noted. Extremities: No leg edema. No calf tenderness. Skin: No rash, ulcer, cellulitis. Lymphatics: No lymph node enlargement in neck, supraclavicular, infraclavicular region. Neuro: No focal neurological deficit. Chest: Unremarkable. External Genitalia: Deferred. Rectal: Deferred. Laboratory Data: White count 8.8, hemoglobin 10.1, platelets 250. Sodium 123, potassium 5, chloride 94, bicarb 18, BUN 40, creatinine 1.51, glucose 99. COVID-19 test negative. CAT scan of the head was negative for any acute intracranial changes. Right knee x-ray was negative for fracture. Left hip x- ray was negative for fracture. CAT scan of the lumbar spine did show changes of arthritis. CAT scan of the pelvis shows cortical irregularity of the left femur in the area between femoral head and neck region. Impression: 1. Rule out hip fracture. 2. Osteoarthritis, multiple sites. 3. Hyponatremia. 4. Anemia, chronic, unspecified. 5. Chronic kidney disease. 6. Hypertension. 7. Mixed hyperlipidemia. 8. Carotid artery stenosis. 9. Mild dementia. 10. Allergic rhinitis. 11. Chronic constipation. 12. Insomnia. Plan: Admit the patient to hospital for further evaluation and management of this problem. The patient's range of motion is normal in both hips, both knees, and does not have any pain with any range of motion at these joints. Orthopedic consultation has been requested from Dr. Jimenez, who has evaluated her. The patient will have MRI done tomorrow to rule out any occult hip fracture, but our clinical suspicion is low. We will continue her hydrocodone like the way she takes at home. For hyponatremia, we will go ahead and give her IV fluid, repeat blood work tomorrow morning, and details and plan of treatment discussed with the patient and her daughter. The patient has a walker, but she is not using it and I have advised her to use walker all the time and she will benefit from outpatient physical therapy and we will give order for that upon discharge. Home medications will be continued per order. I will see her in the morning for followup. FRANCINE/CATHERINE Voice ID: [id number]
[2021-04-17] MEDS: HYDROCODONE/APAP 7.5/325 MG TAB PO PRN ×2 (03:52→13:14)
[2021-04-17 05:22] VITALS: O2SAT 94
[2021-04-17 06:33] LABS: Absolute Lymphocytes (CBC) 0.9 K/uL (0.7-4.9); Basophils % 0.3 % (0-1.3); Hematocrit 29.2 % (36.0-45.0); Lymphocytes % 11.7 % (15.3-44.8); MPV 7.3 fL (7.6-11.3); RBC Red Blood Cell Count 3.35 M/uL (3.86-4.86)
[2021-04-17 07:00] LABS: Albumin 3.8 g/dL (3.4-5.0); Bilirubin Total 0.3 mg/dL (0.2-1.0); Potassium 4.7 mmol/L (3.5-5.1); Protein, Total 7.4 g/dL (6.4-8.2); Thyroid Stimulating Hormone 2.21 uIU/mL (0.360-3.740)
--- NOTE | 2021-04-17 07:38 | RAD REPORT ---
EXAM DESCRIPTION: RAD - Chest Single View - 04/17/2021 4:32 am CLINICAL HISTORY: Hip fracture, preoperative examination COMPARISON: April 2020 TECHNIQUE: AP portable chest image was obtained 04/17/2021 4:32 am . FINDINGS: No focal mass or consolidation. Interstitial pattern is accentuated by a lower lung volume than the comparison study. Failure and volume overload are not suspected. Heart size is magnified by rotation. No vascular engorgement. No measurable pleural effusion and no pneumothorax. No acute bony abnormality seen. No acute aortic findings suspected. IMPRESSION: No acute cardiopulmonary process.
--- NOTE | 2021-04-17 08:50 | RAD REPORT ---
EXAM DESCRIPTION: MRI - Hip Left Wo Cont - 04/17/2021 8:01 am CLINICAL HISTORY: r/o fractureabnormal CT study, hip pain, suspected subcapital neck fracture COMPARISON: CT Pelvis Wo Cont dated 04/16/2021 FINDINGS: Left femur from femoral head to proximal shaft shows normal marrow signal characteristics matching the right femur. No fracture changes are present. The CT finding represents normal variant i n anatomy/degenerative change in this patient. Imaged portions of the bony pelvis also show no suspic ious marrow pattern. There are scattered fatty changes present but no acute or aggressive bone proces s. The left pelvis skeletal musculature shows no wall edema or hematoma change. No asymmetry with the right-side musculature. No edema or hematoma in the fatty tissues. Along the floor the pelvis there are no acute findings identifiable. IMPRESSION: MRI left hip examination shows no fracture or acute finding.
[2021-04-17 12:00] VITALS: BP 146/63; TEMP 98.2
[2021-04-17] MEDS ORDERED: ENOXAPARIN 30 MG/0.3 ML SQ SCH (17:00)
--- NOTE | 2021-04-18 00:49 | DS ---
Date of Discharge: 04/17/2021 Disposition: Discharged to go back to [facility]. Discharge Medications And Instructions: 1.Continue all prior home medication except following changes: a.Stop furosemide. b.Stop potassium chloride. 2.Follow up at my office next week on 04/23/2021. Physical Examination: HEENT: Unremarkable. Lungs: Clear to auscultation. Heart: Sounds normal. Abdomen: Soft. Bowel sounds normal. No guarding, rigidity, tenderness, distention. Extremities: No leg edema. Laboratory Data: Today, white count 7.5, hemoglobin 9.9, platelets 254. Sodium level today is 127, potassium 4.7, chloride 99, bicarb 21, BUN 32, creatinine 1.23, glucose 87. Liver function tests unr emarkable. Triglycerides 50, TSH 2.21, total cholesterol 216, HDL 112. Hospital Course: This is an 80-year-old female patient living at [facility], came to emergency ralph after she fell down in her room at [facility] and she was brought in. The patient has osteoarthr itis at multiple sites and has chronic back pain, and she was complaining of her back pain when she c linnette in. She did not have any complaints of any hip pain. Further evaluation in emergency room inclu ded x-ray of the hip and x-ray of knee, both were negative for any fracture. Her CAT scan of the lum bar spine showed some changes of arthritis, but there was no evidence of any fracture of lumbar spine . Her CAT scan of the pelvis revealed presence of cortical irregularity at the junction of left femo ral head and neck area. Today, the patient had an MRI done on the hip, it was reported as negative f or fracture. The patient is ambulating well without any difficulties. Her orthostatic vital signs w ere done and she did not show any drop in her blood pressure in sitting or standing position compared to supine position. The patient had volume depletion with elevated BUN, creatinine, and low sodium, which was corrected with IV fluid hydration and we will continue IV fluid until the time of discharg e today. The patient was taking furosemide and potassium, and this was discontinued at the time of r [facility] office visit about a week to 2 weeks ago, but I found out today after talking to the patient's daughter that [facility] was still giving this particular medication, so written instruction was gi rowena again today for daughter to take it to [facility] and that is for the patient to discontinue fu rosemide and potassium chloride. We did discuss options about going to outpatient physical therapy v ersus getting home health and home physical therapy, and my recommendation is that the patient will g ain lot more with outpatient therapy and daughter is willing to take her, so order for physical thera py and occupational therapy given to daughter today at the hospital. Orthopedic consultation was elias العراقي from Dr. Jimenez. Discharge Diagnoses: 1.Hyponatremia. 2.Volume depletion. 3.Osteoarthritis, multiple sites. 4.Anemia, chronic, unspecified. 5.Chronic kidney disease, stage 3A. 6.Hypertension. 7.Mixed hyperlipidemia. 8.Carotid artery stenosis, left. 9.Senile dementia. 10.Allergic rhinitis. 11.Chronic constipation. 12.Insomnia. FRANCINE/MODL Voice ID: [id number] Report ID: [id number]
== END 2021-04-17 15:20 | disposition home or self-care (01) ==
LOC: ER 06:26 → ERHOLD 10:35 → 2ND 14:34
PROVIDERS: ADMIT Internal Medicine; ATTEND Internal Medicine
DX: S70.02XA Contusion of left hip, initial encounter (principal); E87.1 Hypo-osmolality and hyponatremia; E86.9 Volume depletion, unspecified; M15.9 Polyosteoarthritis, unspecified; I12.9 Hypertensive chronic kidney disease with stage 1 through stage 4 chronic kidney disease, or unspecified chronic kidney disease; N18.31 Chronic kidney disease, stage 3a; D63.1 Anemia in chronic kidney disease; Z20.822 Contact with and (suspected) exposure to COVID-19; E78.2 Mixed hyperlipidemia; F03.90 Unspecified dementia, unspecified severity, without behavioral disturbance, psychotic disturbance, mood disturbance, and anxiety; J30.9 Allergic rhinitis, unspecified; K59.09 Other constipation; G47.00 Insomnia, unspecified; I65.22 Occlusion and stenosis of left carotid artery; M54.9 Dorsalgia, unspecified; M81.0 Age-related osteoporosis without current pathological fracture; W19.XXXA Unspecified fall, initial encounter
CPT/HCPCS: 36415; 70450; 71045; 72125; 72131; 72192; 80048; 80053; 80061; 84443; 85025; 85610; 85730; 93005; 99284; G0378; J1650; J7030; U0003

== ENCOUNTER 2022-03-16 18:13 | Observation (INO) | payer OTHER, BC ==
[2022-03-16 18:54] LABS: Urine Blood Negative (Negative); Urine Glucose Negative (Negative); Urine Protein Negative (Negative)
[2022-03-16 19:07] LABS: Urine Bacteria NONE SEEN /HPF (<20); Urine RBC <5 /HPF (NONE SEEN)
--- NOTE | 2022-03-16 19:34 | RAD REPORT ---
EXAM DESCRIPTION: RAD - Chest Single View - 03/16/2022 7:19 pm CLINICAL HISTORY: AMS COMPARISON: Portable 04/17/2021 TECHNIQUE: AP portable chest image was obtained 03/16/2022 7:19 pm . FINDINGS: No peripheral mass or consolidation. No interstitial pulmonary edema findings. Heart size and mediastinum are similar to comparison. Chest is distorted in configuration due to pronounced thor acolumbar scoliosis. Heart size is normal. No measurable pleural effusion and no pneumothorax. No acu te bony abnormality seen. No acute aortic findings suspected. IMPRESSION: No acute cardiopulmonary process. No significant change from comparison.
--- NOTE | 2022-03-16 19:36 | RAD REPORT ---
EXAM DESCRIPTION: CT - Head Brain Wo Cont - 03/16/2022 7:25 pm CLINICAL HISTORY: altered mental status, headache COMPARISON: HEAD BRAIN W O CONTRAST dated 05/10/2013 TECHNIQUE: Axial 5 mm thick images of the head were obtained without IV contrast. All CT scans are performed using dose optimization technique as appropriate and may include automated exposure control or mA/KV adjustment according to patient size. FINDINGS: No intracranial hemorrhage, mass, edema or shift of mid-line structures. No acute cortical level infarction seen. No cortical edema or sulcal effacement. Dense arterial tree calcifications ar e present. No abnormal extra-axial fluid collections. Prominent atrophy changes are present progressi ve from 2012. Ventriculomegaly is present and appears to be in proportion to the amount of volume los s. Chronic ischemic changes seen the cerebral white matter. Mastoid air cells and visualized portions of the paranasal sinuses are clear. No acute bony findings. IMPRESSION: No mass, hemorrhage or acute intracranial finding identifiable. Significant atrophy and more moderate chronic ischemic changes are present. Ventricles are in proport ion to volume loss. Atrophy and chronic ischemic change have shown significant progression from 2012.
[2022-03-16] MEDS ORDERED: NA CHLORIDE 0.9% 1,000 ML ONE (20:27)
[2022-03-16] MEDS ORDERED: NA CHLORIDE 0.9% 500 ML ONE (20:27)
--- NOTE | 2022-03-16 20:33 | ER ---
Nurse's Notes [facility] Name: Sofia Mendieta Age: 81 yrs Sex: Female : 1940 Arrival Date: 03/16/2022 Time: 18:15 Bed 17 Private MD: Aryan Pablo Diagnosis: Syncope Near;Weakness;Dysuria;Anemia, unspecified;Hypo-osmolality and hyponatremia Presentation: 03/16 18:15 Chief complaint: EMS states: Family reports that over the past 4 days that patient just ss hasn't been acting herself, not sleeping and urinating very frequently. Pt c/o headache since this morning. Coronavirus screen: Client denies travel out of the [place] in the last 14 days. Ebola Screen: Patient denies exposure to infectious person. Patient denies travel to an Ebola-affected area in the 21 days before illness onset. Initial Sepsis Screen: Does the patient meet any 2 criteria? No. Patient's initial sepsis screen is negative. Does the patient have a suspected source of infection? No. Patient's initial sepsis screen is negative. Risk Assessment: Do you want to hurt yourself or someone else? Patient reports no desire to harm self or others. Onset of symptoms was March 16, 2022. 18:15 Method Of Arrival: EMS: [facility] 18:15 Acuity: RODGER 3 ss Historical: - Allergies: 18:17 Sulfa (Sulfonamide Antibiotics); ss - PMHx: 18:17 Arthritis; Hypertension; kidney disease; ss - Immunization history:: unknown. - Social history:: Smoking status: Patient denies any tobacco usage or history of. Screenin:55 Abuse screen: Denies threats or abuse. Nutritional screening: No deficits noted. jh6 Tuberculosis screening: No symptoms or risk factors identified. Fall Risk Ambulatory Aid- None/Bed Rest/Nurse Assist (0 pts). Gait- Weak (10 pts.). Mental Status- Overestimates/Forgets Limitations (15 pts.). Assessment: 18:56 General: Appears comfortable, slender, well groomed, Behavior is calm, flat. 6 19:56 General: Appears in no apparent distress. comfortable, Behavior is calm, cooperative. al4 Pain: Complains of pain in left low back and right low back. Neuro: Level of Consciousness is awake, alert, obeys commands, Oriented to person, place. Cardiovascular: Capillary refill < 3 seconds Patient's skin is warm and dry. Respiratory: Airway is patent Respiratory effort is unlabored, Respiratory pattern is regular. : Parent/caregiver report the patient having inability to void urinary frequency. Musculoskeletal: Swelling present in lateral aspect of right calf, right ankle, right calf, right Achilles, medial aspect of right calf, right faustin and anterior aspect of right ankle. 20:30 Reassessment: ER RNs trying for IV access. al4 20:30 Reassessment: Lab called to draw labs from patient while waiting for IV access. al4 21:00 Reassessment: Patient resting with eyes closed. Patient seems lethargic to RN. RN asked al4 family if this is normal and family states patient has not slept in 4 days and she thinks the patient is just exhausted. 21:11 Reassessment: Patient still needs IV access before fluid and medication administration al4 can be done. ER staff working on IV access. 22:07 Reassessment: Patient appears in no apparent distress at this time. Dr. Al gave al4 permission for patients daughter to give the patient her nightly medication from home. 03/17 00:30 Reassessment: Patient appears in no apparent distress at this time. al4 00:51 Reassessment: Snow Shoveler - Alejandrina updated family on plan of care. Patient is going al4 upstairs with pending lab work and housekeeper supervisor states it is okay. 00:55 Reassessment: patient transported upstairs by rodriguez Tinoco RN. al4 01:01 Reassessment: Dr. Al aware of the pepcid not given in the ED. RN gave message to al4 RN upstairs to tell [employer] Cle[employer] that pepcid can be given when patient arrives. Vital Signs: 03/16 18:33 BP 146 / 72; Pulse 77; Resp 16; Temp 98.1(O); Pulse Ox 100% on R/A; Weight 61.23 kg; ss Pain 9/10; 18:55 BP 146 / 73; Pulse 72; Resp 16; Pulse Ox 100% ; jh6 19:50 BP 125 / 54; Pulse 66; Resp 14 S; Pulse Ox 98% on R/A; al4 20:30 BP 121 / 58; Pulse 69; Resp 14; Pulse Ox 98% ; al4 21:45 BP 126 / 76; Pulse 61; Resp 16; Pulse Ox 95% on R/A; al4 22:45 BP 118 / 58; Pulse 62; Resp 12; Pulse Ox 97% ; al4 23:00 BP 105 / 57; Pulse 61; Resp 18; Pulse Ox 97% on R/A; al4 ED Course: 18:15 Patient arrived in ED. ss 18:17 Triage completed. ss 18:17 Arm band placed on right wrist. ss 18:35 Aryan Pablo MD is Private Physician. ss 18:43 Joie Riggins RN is Primary Nurse. jh6 18:56 Urine Culture Sent. ld1 18:56 Urine Microscopic Only Sent. ld1 19:14 Chapito Al MD is Attending Physician. concetta 19:21 Chest Single View XRAY In Process Unspecified. EDMS 19:26 CT Head Brain wo Cont In Process Unspecified. EDMS 19:30 acid condenser on. Pulse ox on. NIBP on. al4 20:30 Missed attempt(s): 22 gauge in left antecubital area. by BUZZ Prieto. al4 20:32 Aryan Pablo MD is Hospitalizing Provider. concetta 21:53 SARS-COV-2 RT PCR (Document "Date of Onset" if Symptomatic) Sent. al4 04 00:00 Side rails up X2. Adult w/ patient. al4 01:08 No provider procedures requiring assistance completed. Patient admitted, IV remains in al4 place. Administered Medications: 03/16 22:10 Discontinued: NS 0.9% 1000 ml IV at 125 ml/hr continuous concetta 10:15 Drug: NS 0.9% 1000 ml Route: IV; Rate: 75 ml/hr; Site: right antecubital; al4 21:41 Drug: Rocephin (cefTRIAXone) 1 grams Route: IV; Rate: per protocol; Site: right al4 antecubital; 21:43 Follow up: IV Status: Completed infusion; IV Intake: 10ml al4 21:43 Drug: NS 0.9% 500 ml Route: IV; Rate: bolus; Site: right antecubital; al4 22:15 Follow up: Response: No adverse reaction; IV Status: Completed infusion; IV Intake: al4 500ml 21:43 Drug: NS 0.9% 1000 ml Route: IV; Rate: 125 ml/hr; Site: right antecubital; al4 03/17 01:09 Not Given (MD keys): Pepcid (famotidine) 20 mg IVP once; dilute with 10 mL 0.9% NaCl; al4 give over 2 minutes Intake: 03/16 21:43 IV: 10ml; Total: 10ml. al4 22:15 IV: 500ml; Total: 510ml. al4 Outcome: 20:33 Decision to Hospitalize by Provider. [facility] 03/17 01:08 Admitted to Med/surg accompanied by nurse, Report called to [employer] al4 Condition: stable Discharge instructions given to patient, family, Instructed on the need for admit, Demonstrated understanding of instructions. 01:13 Patient left the ED. vc1 Signatures: Dispatcher [employer] EDChapito Leon MD MD cha Smirch, Shelby, RN RN ss Jenae Grubbs RN RN ld1 Joie Riggins RN RN [email or web address] Armen Carr al4 Maral Jimenez RN RN vc1 Corrections: (The following items were deleted from the chart) 03/16 18:35 18:15 Chief complaint: EMS states: Family reports that patient seems to be very tired ss the past hour or so and has had an increase in urinary frequency. Pt's only complaint is generalized pain from her osteoporosis. 03/17 02:19 01:01 Reassessment: Dr. Al aware of the pepcid not given in the ED. RN gave al4 message to RN upstairs to tell Hermila that pepcid can ge given when patient arrives. al4
--- NOTE | 2022-03-16 20:33 | EDPHYS ---
Physician Documentation [facility] Name: Sofia Mendieta Age: 81 yrs Sex: Female : 1940 Arrival Date: 03/16/2022 Time: 18:15 Bed 17 Private MD: Aryan Pablo ED Physician Chapito Al HPI: 03/16 20:24 This 81 yrs old Female presents to ER via EMS with complaints of Urinary concetta Frequency. 20:24 The patient presents with urinary symptoms, frequency, urgency. Onset: The concetta symptoms/episode began/occurred 4 day(s) ago. Modifying factors: The symptoms are alleviated by nothing, the symptoms are aggravated by nothing. Associated signs and symptoms: Pertinent positives: urinary frequency. Severity of symptoms: At their worst the symptoms were moderate. weakness x 4 days, frequency. The patient has experienced near-syncope. Onset: The symptoms/episode began/occurred today. The patient is not sexually active. Context: the episode(s) was witnessed, by family. Associated injury: The patient did not suffer any apparent associated injury. Associated signs and symptoms: The patient has no apparent associated signs or symptoms. Severity of symptoms: At their worst the symptoms were moderate in the emergency department the symptoms are unchanged. The patient has not experienced similar symptoms in the past. Historical: - Allergies: 18:17 Sulfa (Sulfonamide Antibiotics); ss - PMHx: 18:17 Arthritis; Hypertension; kidney disease; ss - Immunization history:: unknown. - Social history:: Smoking status: Patient denies any tobacco usage or history of. ROS: 20:26 Positive for urinary frequency. concetta 20:26 Constitutional: Negative for fever, chills, and weight loss, Eyes: Negative for injury, pain, redness, and discharge, ENT: Negative for injury, pain, and discharge, Neck: Negative for injury, pain, and swelling, Cardiovascular: Negative for chest pain, palpitations, and edema, Respiratory: Negative for shortness of breath, cough, wheezing, and pleuritic chest pain, Back: Negative for injury and pain, : Negative for injury, bleeding, discharge, and swelling, MS/Extremity: Negative for injury and deformity, Skin: Negative for injury, rash, and discoloration, Neuro: Negative for headache, weakness, numbness, tingling, and seizure, Psych: Negative for depression, anxiety, suicide ideation, homicidal ideation, and hallucinations, Allergy/Immunology: Negative for hives, rash, and allergies, Endocrine: Negative for neck swelling, polydipsia, polyuria, polyphagia, and marked weight changes, Hematologic/Lymphatic: Negative for swollen nodes, abnormal bleeding, and unusual bruising. 20:26 Abdomen/GI: Negative for abdominal pain, nausea, vomiting, diarrhea, and constipation. 20:26 Abdomen/GI: Positive for 20:26 Neuro: Positive for weakness. Exam: 20:26 Constitutional: This is a well developed, well nourished patient who is awake, alert, concetta and in no acute distress. Head/Face: Normocephalic, atraumatic. Eyes: Pupils equal round and reactive to light, extra-ocular motions intact. Lids and lashes normal. Conjunctiva and sclera are non-icteric and not injected. Cornea within normal limits. Periorbital areas with no swelling, redness, or edema. ENT: Nares patent. No nasal discharge, no septal abnormalities noted. Tympanic membranes are normal and external auditory canals are clear. Oropharynx with no redness, swelling, or masses, exudates, or evidence of obstruction, uvula midline. Mucous membranes moist. Neck: Trachea midline, no thyromegaly or masses palpated, and no cervical lymphadenopathy. Supple, full range of motion without nuchal rigidity, or vertebral point tenderness. No Meningismus. Chest/axilla: Normal chest wall appearance and motion. Nontender with no deformity. No lesions are appreciated. Cardiovascular: Regular rate and rhythm with a normal S1 and S2. No gallops, murmurs, or rubs. Normal PMI, no JVD. No pulse deficits. Respiratory: Lungs have equal breath sounds bilaterally, clear to auscultation and percussion. No rales, rhonchi or wheezes noted. No increased work of breathing, no retractions or nasal flaring. Abdomen/GI: Soft, non-tender, with normal bowel sounds. No distension or tympany. No guarding or rebound. No evidence of tenderness throughout. Back: No spinal tenderness. No costovertebral tenderness. Full range of motion. Female : Normal external genitalia. Skin: Warm, dry with normal turgor. Normal color with no rashes, no lesions, and no evidence of cellulitis. MS/ Extremity: Pulses equal, no cyanosis. Neurovascular intact. Full, normal range of motion. Psych: Awake, alert, with orientation to person, place and time. Behavior, mood, and affect are within normal limits. 20:26 Neuro: Orientation: is normal, appropriate for stated age, no acute changes, Mentation: is normal, appropriate for stated age, no acute changes, slow to respond, Memory: is normal, appropriate for stated age, no acute changes, Cranial nerves: grossly normal, is grossly normal based on the patient's age, no acute changes, Cerebellar function: unable to test, Motor: moves all fours, strength is normal, Sensation: no obvious gross deficits, appropriate no acute changes, Gait: not tested. Deep tendon reflexes are 1 (trace) + in the bilateral brachioradialis, bicep, tricep and patellar and Achilles tendons, Babinski testing is normal. 20:46 ECG was reviewed by the Attending Physician. concetta 22:52 Abdomen/GI: Inspection: abdomen appears normal, Bowel sounds: normal, Palpation: soft, concetta nontender, Rectal exam: Stool: guaiac positive, trace positive , no melena, swelling, is not appreciated, tenderness, is not appreciated, the exam is chaperoned by a family member, Liver: no appreciated palpable abnormalities, Hernia: not appreciated. Vital Signs: 18:33 BP 146 / 72; Pulse 77; Resp 16; Temp 98.1(O); Pulse Ox 100% on R/A; Weight 61.23 kg; ss Pain 9/10; 18:55 BP 146 / 73; Pulse 72; Resp 16; Pulse Ox 100% ; jh6 19:50 BP 125 / 54; Pulse 66; Resp 14 S; Pulse Ox 98% on R/A; al4 20:30 BP 121 / 58; Pulse 69; Resp 14; Pulse Ox 98% ; al4 21:45 BP 126 / 76; Pulse 61; Resp 16; Pulse Ox 95% on R/A; al4 22:45 BP 118 / 58; Pulse 62; Resp 12; Pulse Ox 97% ; al4 23:00 BP 105 / 57; Pulse 61; Resp 18; Pulse Ox 97% on R/A; al4 MDM: 19:15 Patient medically screened. concetta 20:29 Differential diagnosis: nonspecific abdominal pain, urinary tract infection. concetta Differential Diagnosis altered mental status. Differential Diagnosis: cardiac arrhythmia, cerebrovascular accident, GI bleed, idiopathic syncope, vasovagal episode. Data reviewed: vital signs, nurses notes, lab test result(s), EKG, radiologic studies, CT scan, plain films. Data interpreted: district agent: rate is 66 beats/min, rhythm is regular, Pulse oximetry: on room air is 98 %. Test interpretation: by ED physician or midlevel provider: ECG, plain radiologic studies. Counseling: I had a detailed discussion with the patient and/or guardian regarding: the historical points, exam findings, and any diagnostic results supporting the discharge/admit diagnosis, lab results, radiology results, the need for further work-up and treatment in the hospital. 03/16 18:23 Order name: Urine Culture 03/16 18:23 Order name: Urine Microscopic Only; Complete Time: 19:15 03/16 18:54 Order name: Urine Dipstick-Ancillary; Complete Time: 19:15 EDNJ 03/16 19:02 Order name: Blood Culture Adult (2) 03/16 19:02 Order name: CBC with Diff; Complete Time: 22: 03/16 19:02 Order name: CMP; Complete Time: 22: 03/16 19:02 Order name: Lactate; Complete Time: 22: 03/16 19:02 Order name: Protime (+inr); Complete Time: 22: 03/16 19:02 Order name: Ptt, Activated; Complete Time: 22: 03/16 19:13 Order name: Glucose, Ancillary Testing; Complete Time: 19:15 [facility] 03/16 19:17 Order name: Magnesium; Complete Time: 22:09 [facility] 03/16 19:17 Order name: NT PRO-BNP; Complete Time: 22: [facility] 03/16 19:17 Order name: Troponin HS; Complete Time: 22: [facility] 03/16 19:57 Order name: SARS-COV-2 RT PCR (Document "Date of Onset" if Symptomatic) [facility] 03/16 18:23 Order name: Urine Dipstick-Ancillary (obtain specimen); Complete Time: 18:56 03/16 18:24 Order name: Glucose Level; Complete Time: 19:02 03/16 19:02 Order name: Chest Single View XRAY; Complete Time: 19:56 03/16 19:02 Order name: Cardiac monitoring; Complete Time: 20:05 rn 03/16 19:02 Order name: EKG - Nurse/Tech; Complete Time: 20:46 rn 03/16 19:02 Order name: CT Head Brain wo Cont; Complete Time: 19:56 rn 03/16 19:17 Order name: EKG; Complete Time: 19:17 concetta 03/16 22:11 Order name: Urine Osmolality [facility] 03/16 22:11 Order name: Urine Sodium Random [facility] 03/16 22:11 Order name: Osmolality, Serum [facility] 03/16 22:18 Order name: Type And Screen [facility] 03/16 19:02 Order name: Labs collected and sent; Complete Time: 20:05 rn 03/16 19:02 Order name: O2 Per Protocol; Complete Time: 20:05 rn 03/16 19:02 Order name: O2 Sat Monitoring; Complete Time: 20:05 rn 03/16 19:17 Order name: IV Saline Lock; Complete Time: 21:53 concetta 03/16 22:11 Order name: Seizure Precautions; Complete Time: 01:11 [facility] EC:46 Rate is 63 beats/min. Rhythm is regular. QRS [place] is Normal. DE interval is normal. QRS concetta interval is normal. QT interval is normal. No Q waves. T waves are Normal. No ST changes noted. Clinical impression: Normal ECG and No evidence of ischemia. Interpreted by me. Reviewed by me. Administered Medications: 22:10 Discontinued: NS 0.9% 1000 ml IV at 125 ml/hr continuous concetta 10:15 Drug: NS 0.9% 1000 ml Route: IV; Rate: 75 ml/hr; Site: right antecubital; al4 21:41 Drug: Rocephin (cefTRIAXone) 1 grams Route: IV; Rate: per protocol; Site: right al4 antecubital; 21:43 Follow up: IV Status: Completed infusion; IV Intake: 10ml al4 21:43 Drug: NS 0.9% 500 ml Route: IV; Rate: bolus; Site: right antecubital; al4 22:15 Follow up: Response: No adverse reaction; IV Status: Completed infusion; IV Intake: al4 500ml 21:43 Drug: NS 0.9% 1000 ml Route: IV; Rate: 125 ml/hr; Site: right antecubital; al4 03/17 01:09 Not Given (MD awaree): Pepcid (famotidine) 20 mg IVP once; dilute with 10 mL 0.9% NaCl; al4 give over 2 minutes Disposition Summary: 03/16/22 20:33 Hospitalization Ordered Provider: Aryan Pablo cha Condition: Fair concetta Problem: new concetta Symptoms: have improved concetta Bed/Room Type: Standard concetta Hospitalization Status: Inpatient Admission(03/16/22 22:13) concetta Location: Telemetry/MedSurg (Inpatient)(03/16/22 22:13) concetta Room Assignment: 229(03/16/22 23:42) ld1 Diagnosis - Syncope Near concetta - Weakness concetta - Dysuria concetta - Anemia, unspecified concetta - Hypo-osmolality and hyponatremia concetta Forms: - Medication Reconciliation Form concetta - SBAR form concetta Signatures: Dispatcher [employer] EDMS Chapito Al MD MD cha Nieto, Roman, MD MD rn Smirch, Shelby, RN RN ss Jenae Grubbs RN RN ld1 Armen Carr al4 Corrections: (The following items were deleted from the chart) 03/16 21:53 19:02 IV Saline Lock - Large Bore ordered. rn al4 22:13 20:33 Observation concetta concetta 22:13 20:33 Telemetry/MedSurg (observation) concetta concetta 22:13 20:33 concetta concetta 23:42 22:13 concetta ld1
[2022-03-16 21:35] LABS: Absolute Lymphocytes (CBC) 0.9 K/uL (0.7-4.9); Hematocrit 24.9 % (36.0-45.0); Lymphocytes % 28.3 % (15.3-44.8); MPV 7.2 fL (7.6-11.3); RBC Red Blood Cell Count 2.81 M/uL (3.86-4.86)
[2022-03-16 21:39] LABS: Protime INR 1.05
[2022-03-16] MEDS ORDERED: CEFTRIAXONE 1000 MG/VIAL ONE (21:40)
[2022-03-16 21:48] LABS: Albumin 3.5 g/dL (3.4-5.0); Bilirubin Total 0.3 mg/dL (0.2-1.0); Potassium 3.9 mmol/L (3.5-5.1); Protein, Total 6.4 g/dL (6.4-8.2)
[2022-03-16 21:52] LABS: Magnesium 2.1 mg/dL (1.8-2.4); Troponin High Sensitivity 38.1 pg/mL (<58.9)
[2022-03-16] MEDS ORDERED: FAMOTIDINE 20 MG/2 ML VIAL IV ONE (23:49)
[2022-03-17] MEDS ORDERED: ACETAMINOPHEN 325 MG TABLET PO PRN (01:34)
[2022-03-17] MEDS ORDERED: NA CHLORIDE 0.9% 1,000 ML IV SCH (01:34)
[2022-03-17] MEDS ORDERED: ONDANSETRON 4 MG/2 ML VIAL IV PRN (01:34)
[2022-03-17] MEDS: FAMOTIDINE 20 MG/2 ML VIAL IV SCH ×2 (01:34→09:40)
[2022-03-17 01:51] VITALS: BMI 21.0
[2022-03-17 06:25] LABS: Absolute Lymphocytes (CBC) 0.6 K/uL (0.7-4.9); Hematocrit 24.5 % (36.0-45.0); Lymphocytes % 12.5 % (15.3-44.8); MPV 7.5 fL (7.6-11.3); RBC Red Blood Cell Count 2.77 M/uL (3.86-4.86)
[2022-03-17 06:35] LABS: Potassium 3.9 mmol/L (3.5-5.1); Thyroid Stimulating Hormone 2.87 uIU/mL (0.360-3.740)
[2022-03-17 08:16] VITALS: O2SAT 98
[2022-03-17 08:38] VITALS: BP 119/57; TEMP 97.4
[2022-03-17] MEDS ORDERED: ASPIRIN EC 81 MG TAB PO SCH (09:00)
--- NOTE | 2022-03-17 12:53 | EKG ---
Test Date: 2022-03-16 Test Time: 20:32:07 Hr Analyst: DEACON MEASUREMENT RESULTS: Intervals: Rate: 63 [place]: 178 QRSD: 74 QT: 444 QTc: 454 [place]: P: 82 NJ: 178 QRS: 66 T: 81 INTERPRETIVE STATEMENTS: Normal sinus rhythm Possible Left atrial enlargement Borderline ECG Compared to ECG 04/17/2021 09:20:09 No significant changes Electronically Signed On 03-17-22 12:51:59 CDT by Simone aMrtines
--- NOTE | 2022-03-18 04:29 | SS ---
Date of Admission: -03/17/2022 Date of Discharge: 03/17/2022 Chief Complaint: Feeling weak. History Of Present Illness: This 81-year-old very pleasant female patient who lives at home with 24-hour care provider at home, came into emergency room with about 4-5 days history of increasing weakness, trouble ambulating. No fall. No injury. No nausea or vomiting. No headache. Her appetite is good. No fever. After she came into ER, she was evaluated and was admitted to the hospital with hyponatremia. Her sodium level was 121. She was started on IV fluids and was admitted to the hospital this morning, her daughter was with her at bedside. Allergies: TO SULFA. Medications: List reviewed. Review of Systems: Constitutional: As mentioned above. Neurology: Has memory problem and insomnia, which is not well controlled with current medications as per discussion with daughter. All other systems reviewed and negative. Past Medical History: Significant for senile dementia, allergic rhinitis, hypertension, mixed hyperlipidemia, carotid artery stenosis, constipation, chronic kidney disease, osteoarthritis at multiple sites, leukocytopenia, anemia, osteoporosis. Past Surgical History: Left carotid artery stent placement in 2005, hysterectomy, right knee surgery. Social History: Negative for smoking and alcohol use. Family History: Father had lung cancer and coronary artery disease. Mother, osteoarthritis. Brother, coronary artery disease. Physical Examination: Vital Signs: Temperature 97.7, pulse 59, respiratory rate 17, blood pressure 125/57, oxygen saturation 98% on room air, height 5 feet 6 inches, weight 130 pounds. General: Awake, alert, oriented, not in distress. HEENT: Head atraumatic, normocephalic. Conjunctivae nonerythematous. Sclerae white. Mouth, no thrush or edema noted. Ears/Nose, no mass, lesion, discharge noted. Neck: Supple. No JVD, lymph nodes, bruit, thyromegaly noted. Lungs: Bilateral good equal air entry. Clear to auscultation. No rhonchi. No rales. Heart: Normal heart sounds, no murmur or gallop. Abdomen: Soft, bowel sounds normal. No guarding, rigidity, tenderness, mass, hepatosplenomegaly, distention, or bruit noted. Extremities: No leg edema. No calf tenderness. Skin: No rash, ulcer, cellulitis. Lymphatics: No lymph node enlargement in neck, supraclavicular, infraclavicular region. Neuro: No focal neurological deficit. Chest: Unremarkable. External Genitalia: Deferred. Rectal: Deferred. Labs: Yesterday, white count 3.1, hemoglobin 8.4, platelets 313. This morning, white count 4.9, hemoglobin 8.2, platelets 306. Yesterday, sodium 121, potassium 3.9, chloride 89, bicarb 23, BUN 17, creatinine 1.12, estimated GFR 46. Liver function tests unremarkable. Serum osmolality 252. Urine osmolality pending. This morning, TSH 2.87, triglyceride 52, sodium 124, potassium 3.9, chloride 93, bicarb 21, BUN 16, creatinine 0.96. The estimated GFR 56. Urinalysis negative for any evidence of urinary tract infection. Chest x-ray, no acute cardiopulmonary changes. CAT scan of the brain, no acute intracranial changes. There is significant cerebral atrophy. Hospital Course: After the patient was evaluated in the ER, she was admitted to the hospital. IV fluid with normal saline was started and she responded well. Sodium level has come up this evening. Medically she is stable and she does have a history of hyponatremia. Her last outpatient serum sodium level was 127 and the one prior to that was 123. I have explained it to the patient's daughter that we will discontinue olmesartan to see if it is contributing to her hyponatremia problem and we will change her antihypertensive medication to amlodipine, which she has used in the past. I have instructed daughter to bring her to the office for followup next week on Tuesday which is 03/23/2022, and at that time of office visit we will repeat her blood work. Discharge Medications And Instructions: Continue all prior home medications except stop olmesartan. Start amlodipine 5 mg daily in the morning. Next, start sodium bicarbonate 325 mg take 1 tablet by mouth 2 times a day and prescription for both of this medication and also increased dose of Abilify from 2.5 to 5 mg daily at bedtime, and all these 3 prescriptions were sent to her pharmacy. Final Diagnoses: 1. Hyponatremia. 2. Insomnia. 3. Anemia, chronic, unspecified. 4. Leukocytopenia. 5. Senile dementia. 6. Hypertension. 7. Mixed hyperlipidemia. 8. Chronic kidney disease, stage IIIA. 9. Carotid artery stenosis, left side. 10. Osteoarthritis, multiple sites. 11. Osteoporosis. FRANCINE/MODL Voice ID: [id number] Report ID: [id number]
== END 2022-03-17 10:30 | disposition home or self-care (01) ==
LOC: ER 18:13 → ERHOLD 20:35 → 2ND 03-17 00:49
PROVIDERS: ADMIT Internal Medicine; ATTEND Internal Medicine
DX: E87.1 Hypo-osmolality and hyponatremia (principal); G47.00 Insomnia, unspecified; D64.9 Anemia, unspecified; D72.819 Decreased white blood cell count, unspecified; F03.90 Unspecified dementia, unspecified severity, without behavioral disturbance, psychotic disturbance, mood disturbance, and anxiety; I12.9 Hypertensive chronic kidney disease with stage 1 through stage 4 chronic kidney disease, or unspecified chronic kidney disease; N18.31 Chronic kidney disease, stage 3a; R55 Syncope and collapse; R30.0 Dysuria; E78.2 Mixed hyperlipidemia; I65.22 Occlusion and stenosis of left carotid artery; M15.9 Polyosteoarthritis, unspecified; M81.0 Age-related osteoporosis without current pathological fracture; K59.00 Constipation, unspecified; J30.9 Allergic rhinitis, unspecified; Z20.822 Contact with and (suspected) exposure to COVID-19; Z88.2 Allergy status to sulfonamides; Z90.710 Acquired absence of both cervix and uterus; Z82.49 Family history of ischemic heart disease and other diseases of the circulatory system; Z80.1 Family history of malignant neoplasm of trachea, bronchus and lung; Z82.61 Family history of arthritis
CPT/HCPCS: 96361; 93005; 87040 ×2; 87088; 85025 ×2; 87086; 80048; 36415; 86900; 83735; 86850; 85610; 84300; 80061; 86901; 82947; 83605; 85730; 84443; 84484; 80053; 83880; 83930; 83935; 70450; 71045; 96374; 99285; U0003; J7040; J7030 ×2; J3490 ×2; G0378 ×2; 81003; 81015